=== PATIENT | female | born 1960 | race Caucasian/White ===

== ENCOUNTER 2020-10-19 08:57 | Emergency (ER) | payer OTHER ==
[2020-10-19] MEDS ORDERED: CLEOCIN HCL300 MG PO (09:38)
== END 2020-10-19 10:17 | disposition home or self-care (01) ==
LOC: ER1 08:57
DX: K04.7 Periapical abscess without sinus (principal); E03.9 Hypothyroidism, unspecified
CPT/HCPCS: 96372; 99282; J1885